=== PATIENT | male | born 1995 | race Caucasian/White ===

== ENCOUNTER 2017-08-12 13:22 | Emergency (ER) | payer BC, OTHER ==
[~2017-08-12] VITALS: Ht 177.8 cm; Wt 99.5 kg
[2017-08-12 13:28] VITALS: TEMP 36.7; Ht 177.8 cm; Wt 99.5 kg
--- NOTE | 2017-08-12 14:03 | EMERGENCY ROOM VISIT NOTE ---
ED Visit Note First contact with patient: 13:33 CHIEF COMPLAINT: "I am sick" HISTORY OF PRESENT ILLNESS: This 22-year-old male patient presents to the emergency department ambulatory, complaining of sore throat which began this morning. The patient describes a headache a few days ago, and states he now feels that he has a sore throat with a deeper than normal voice. The patient has taken no medications for his symptoms. They deny any other symptoms including congestion, rhinorrhea, swollen lymph nodes, cough, fever, chills, nausea, or vomiting. There is pain with swallowing and the patient is having difficulty eating. The patient does not recall any known exposure to strep throat. Denies a rash. The patient does not have any history of strep throat. His female partner in the room states she insisted he come in, as she gets tonsil stones and tonsillitis with strep throat. REVIEW OF SYSTEMS: A 10 system review of systems was performed with positives and pertinent negatives listed in the history of present illness. All other systems were reviewed and are negative. ALLERGIES: None MEDICATIONS: None PMH: None SOCIAL HISTORY: The patient lives locally with family. He denies drug, alcohol use. He does admit to using "quite a bit" of tobacco PHYSICAL EXAM: VITALS: Vitals are noted on the nurse's note and reviewed by myself. Vital signs stable. GENERAL: This is a 22-year-old male, in no acute distress, nondiaphoretic, well- developed well-nourished. SKIN: The skin was without rashes, erythema, edema, or bruising. There is no tenting of the skin. Capillary reflex less than 2 seconds. HEAD: Normocephalic atraumatic. EARS: External auditory canals clear, tympanic membranes pearly caldera without erythema or effusion bilaterally. EYES: Pupils equal round and reactive to light and accommodation. Conjunctivae without injection, sclerae without icterus. Extraocular movements intact. NOSE: Patent, turbinates without inflammation or discharge. No sinus tenderness. MOUTH: Mucous membranes moist. Tonsils are not enlarged. Pharynx without erythema or exudate. Uvula midline. Airway patent. Tongue does not deviate. NECK: Supple without nuchal rigidity. No lymphadenopathy. No thyromegaly. Cervical spine is nontender. No JVD. HEART: Regular rate and rhythm without murmurs gallops or rubs. LUNGS: Clear to auscultation bilaterally without wheezes, rales or rhonchi. No dullness to percussion. No retractions or accessory muscle use. MUSCULOSKELETAL: No muscle atrophy, erythema, or edema noted. Full range of motion without joint tenderness in all extremities. No tenderness to palpation. Normal gait. Strength 5/5 throughout. NEURO: Patient was alert and oriented to person place and time. Normal sensation to light and sharp touch. No focal neurological deficits. EMERGENCY DEPARTMENT COURSE: The patient was seen and evaluated as above. Rapid strep test was performed at the patient and his partners request and was negative. Culture is pending. Discharge instructions reviewed, and the patient was discharged home in good condition. I attest that I have personally reviewed the patient's current medication list. Patient was found to have normal blood pressure on screening and does not require follow-up. DIFFERENTIAL DIAGNOSIS: Acute pharyngitis, URI, Viral pharyngitis, Strep Pharyngitis, dental abscess, influenza, Bjin-[id number] Disease, Peritonsillar abscess, tonsillitis, malignancy, and others DIAGNOSIS: Acute viral pharyngitis The chart was completed utilizing [employer] voice recognition software. Grammatical errors, random word insertions, pronoun errors, and incomplete sentences are an occasional consequence of this system due to software limitations, ambient noise, and hardware issues. Any formal questions or concerns about the content, text, or information contained within the body of this dictation should be directly addressed to the provider for clarification. Current/Historical Medications No Active Prescriptions or Reported Meds Allergies Coded Allergies: No Known Allergies (Unverified , 08/12/17) Vital Signs Date Time Temp Pulse Resp B/P (MAP) Pulse Ox O2 Delivery O2 Flow Rate FiO2 08/12/17 14:26 81 21 127/78 98 08/12/17 13:28 36.7 94 18 130/86 98 Room Air 08/12/17 13:27 99 Room Air Departure Information Impression Primary Impression: Viral pharyngitis Dispostion Home / Self-Care Condition GOOD Prescriptions No Active Prescriptions or Reported Meds Referrals No Doctor, Assigned (PCP) Patient Instructions ED Pharyngitis Viral Report Pending, My [facility] Additional Instructions You were seen and evaluated in the emergency department today for an upper respiratory infection/sore throat. I do feel that based on your symptoms, and the duration of illness, this is likely viral in nature. As discussed, antibiotics will not treat viral illness. Rapid strep test was negative. Culture report is pending and will be available in 2-3 days. For your sore throat, you may use a 1:1 mixture of liquid Benadryl and liquid Maalox. Gargle and spit this mixture. It will help to soothe the throat and provide some relief. Drink warm tea with honey and lemon, as this will also help to soothe the throat. Gargle with salt water frequently. As discussed, you should take OTC Mucinex and/or Sudafed for your symptoms. Please do not exceed the recommended daily dosages. Ibuprofen(Motrin, Advil) may be used for fever or pain. Use 600mg every six hours as needed. Take with food. Avoid using more than 2400mg in a 24 hour period. Do not use 2400mg per day for more than three consecutive days without physician direction. Prolonged inappropriate use can lead to stomach upset or ulcers. You may take Naproxen 1-[address] daily in [address] of ibuprofen. This medication will help with the swelling in your sinuses. (AND/OR) Acetaminophen(Tylenol) may be used for fever or pain. Use 1000mg every six hours as needed. Avoid using more than 3000mg in a 24 hour period. For congestion, you may use Flonase OTC. You may want to consider zinc, echinacea, and vitamin C to help boost your immunity. Please get plenty of rest and drink plenty of fluids. Please return or follow-up with your PCP in 1 week if you are not experiencing any improvement in your symptoms. Return to the emergency department for coughing up blood, difficulty breathing, chest pain, worsening symptoms, or for other concerns.
[2017-08-12 14:26] VITALS: BP 127/78; PULSE 81; O2SAT 98
== END 2017-08-12 14:27 | disposition home or self-care (01) ==
LOC: C.EDB 13:24 → C.EDD 14:27
DX: J02.9 Acute pharyngitis, unspecified (principal); Z72.0 Tobacco use